=== PATIENT | female | born 1955 | race Caucasian/White ===

== ENCOUNTER 2016-12-20 11:47 | Observation (INO) | payer BC ==
[~2016-12-20] VITALS: Ht 167.6 cm; Wt 98.4 kg
[2016-12-20 13:02] LABS: ADD MIUA? YES; BILIRUBIN NEGATIVE; BLOOD SMALL; COLOR YELLOW ((YELLOW)); GLUCOSE (STRIP) NEGATIVE; KETONES NEGATIVE; LEUKOCYTES MODERATE; NITRITE NEGATIVE; PROTEIN (STRIP) NEGATIVE; UROBILINOGEN 0.2 MG/DL (0.2-1.0)
[2016-12-20 13:05] LABS: BACTERIA 2+ /HPF; EPITHELIAL CELLS RARE /HPF; MUCUS TRACE /LPF; RED BLOOD CELLS 0-5 /HPF (0-5)
[2016-12-20 13:08] LABS: HEMATOCRIT 46.5 % (36.0-46.0); MCHC 32.9 G/DL (30.0-36.0); MCV 94.1 FL (83-99); PLATELET COUNT 220 K/uL (156-360); RBC DIS.WIDTH-CV 12.7 % (11.8-14.6); RBC DIS.WIDTH-SD 43.9 % (39-53); RED BLOOD COUNT 4.94 M/uL (3.80-5.20); WHITE BLOOD COUNT 4.9 K/uL (4.1-10.2)
[2016-12-20 13:19] LABS: CHLORIDE 109 mEq/L (99-109); POTASSIUM 3.9 mEq/L (3.7-5.4); SODIUM 141 mEq/L (136-147)
[2016-12-20 13:21] LABS: GLUCOSE 94 mg/dL (70-99)
[2016-12-20 13:22] LABS: ANION GAP 13 MEQ/L (2-14)
[2016-12-20 13:25] LABS: GFR ESTIMATE (CALCULATED) > 59 mL/min/; UREA NITROGEN (BUN) 10 mg/dL (9-23)
[2016-12-20 13:30] LABS: TROP-I INTERPRETATION NEGATIVE; TROPONIN-I < 0.01 ng/mL (0.0-0.30)
[2016-12-20] MEDS ORDERED: AMLODIPINE BES2.5 MG PO (14:50)
[2016-12-20 16:20] LABS: TROP-I INTERPRETATION NEGATIVE; TROPONIN-I < 0.01 ng/mL (0.0-0.30)
[2016-12-20] MEDS ORDERED: FUROSEMIDE20 MG PO (17:12)
[2016-12-20] MEDS ORDERED: ALPRAZOLAM0.25 M2 PO (17:12)
[2016-12-20 19:53] VITALS: BP 143/79
[2016-12-20 20:23] VITALS: BP 141/86
[2016-12-20 21:05] LABS: ALKALINE PHOSPHATASE 60 IU/L (3-129); CREATINE KINASE 58 IU/L (1-294); DIRECT BILIRUBIN 0.1 mg/dL (0.0-0.3); TOTAL BILIRUBIN 0.4 MG/DL (0.0-1.0)
[2016-12-21 06:02] LABS: EOSINOPHIL (%) 3.7 % (0-5); EOSINOPHIL COUNT 0.2 K/uL (0-0.3); HEMATOCRIT 41.6 % (36.0-46.0); IMMATURE GRANULOCYTE (%) 0.6 % (0.0-0.7); INSTRUMENT ABS NEUTROPHIL CT 2.6 K/uL; LYMPHOCYTE COUNT 1.3 K/uL (1.0-2.8); MCH 30.6 PG (29.0-34.0); MCHC 32.5 G/DL (30.0-36.0); MCV 94.3 FL (83-99); MONOCYTE (%) 14.9 % (3-12); MONOCYTE COUNT 0.7 K/uL (0-0.8); NEUTROPHIL (%) 53.5 % (45-76); NEUTROPHIL COUNT 2.6 K/uL (1.8-6.4); PLATELET COUNT 217 K/uL (156-360); RBC DIS.WIDTH-CV 12.9 % (11.8-14.6); RBC DIS.WIDTH-SD 44.7 % (39-53); RED BLOOD COUNT 4.41 M/uL (3.80-5.20); WHITE BLOOD COUNT 4.9 K/uL (4.1-10.2)
[2016-12-21 06:15] LABS: ALKALINE PHOSPHATASE 59 IU/L (3-129); ANION GAP 9 MEQ/L (2-14); CHLORIDE 109 MEQ/L (99-109); DIRECT BILIRUBIN 0.1 mg/dL (0.0-0.3); GFR ESTIMATE (CALCULATED) > 59 mL/min/; GLUCOSE 86 mg/dL (70-99); POTASSIUM 3.6 MEQ/L (3.7-5.4); SAMPLE HEMOLYSIS CHECK 0; SAMPLE ICTERIC CHECK 0; SAMPLE LIPEMIA CHECK 0; SODIUM 142 MEQ/L (136-147); TOTAL BILIRUBIN 0.4 MG/DL (0.0-1.0); UREA NITROGEN (BUN) 10 mg/dL (9-23)
[2016-12-21 07:50] VITALS: BP 165/85
[2016-12-21 11:53] VITALS: BP 177/87
[2016-12-21 15:44] VITALS: BP 140/86
[2016-12-21 20:00] VITALS: BP 142/85
[2016-12-21 23:39] VITALS: BP 129/64
[2016-12-22 03:50] VITALS: BP 136/76
[2016-12-22] MEDS ORDERED: ANTIVERT25 MG PO (08:07)
[2016-12-22 09:38] VITALS: BP 128/79
== END 2016-12-22 10:47 | disposition home or self-care (01) ==
LOC: EME 11:47 → EDOF 18:44 → 5WEST 18:44 → EDOF 18:44 → 5WEST 19:47
PROVIDERS: Hospitalist; Physician Assistant
DX: R55 Syncope and collapse (principal); E87.6 Hypokalemia; N39.0 Urinary tract infection, site not specified; R42 Dizziness and giddiness; I10 Essential (primary) hypertension; F41.9 Anxiety disorder, unspecified; M19.90 Unspecified osteoarthritis, unspecified site; E66.9 Obesity, unspecified
CPT/HCPCS: 70110; 70450; 70551; 71020; 73564; 80048; 80076; 81003; 82550 91; 84484; 85025; 85027; 87086; 93005; 93306; 93880; 95819; 99281; 99285; G0378; J7030